=== PATIENT | female | born 1950 | race Caucasian/White ===

== ENCOUNTER → 2017-01-03 | Outpatient (CLI) | payer MEDICARE, BC ==
[~2017-01-03] MED LIST: AMITRIPTYLINE H25 M1 PO; DOXYCYCLINE 10100 MG PO; ELAVIL50 MG PO; ELMIRON100 MG PO; ENABLEX15 MG PO; LORTAB 5/500 501 TAB PO; NORCO 325 MG-51 TAB PO; OMNICEF 300MG300 MG PO; PRAVACHOL 40MG40 MG PO; PRAVASTATIN40 MG PO; PREDNISONE20 MG PO; PRELIEF333 M1 PO; PROBIOTIC-MAJOR PO; STOOL SOFTENER100 MG PO; SYNTHROID0.075 MG/T PO; THE MEDICINE S200 M2 PO; TUMS ULTRA1000 MG PO; [UNRECOGNIZED DRUG - OTHER] PO
== END ==
LOC: MC.RAD 13:00
DX: Z12.31 Encounter for screening mammogram for malignant neoplasm of breast (principal)

== ENCOUNTER 2018-03-27 18:00 | Inpatient (IN) | payer MEDICARE, BC ==
[~2018-03-27] VITALS: Ht 165.1 cm; Wt 87.7 kg
[2018-04-03 09:47] LABS: BASO # 0.1 (0.0-0.2); EOS # 0.2 (0.0-0.7); EOS % 3.3 % (0-4.0); GRAN # 4.3 (1.4-6.5); GRAN % 59.8 % (42.2-75.2); HEMATOCRIT 40.9 % (37.0-47.0); LYMPH # 2.1 (1.2-3.4); LYMPH % 28.6 % (20.0-51.0); MEAN CELL VOLUME 88 fl (80.0-100.0); MEAN CORPUSCULAR HEMOGLOBIN 30 pg (27.0-31.0); MEAN CORPUSCULAR HGB CONC 34 g/dl (33.0-37.0); MEAN PLATELET VOLUME 9.8 fl (7.4-10.4); MONO # 0.5 (0.1-0.6); MONO % 7.2 % (1.7-9.3); PLATELET COUNT 280 K/mm3 (130-400); RED BLOOD COUNT 4.66 M/mm3 (4.10-5.30); REDCELL DISTRIBUTION WIDTH-CV 13.1 % (11.5-14.5)
[2018-04-03 09:53] LABS: INR 1.1 (0.8-3.0); PROTHROMBIN TIME 12.2 SECONDS (9.7-12.8)
[2018-04-03] MEDS ORDERED: TOPROL XL 25MG25 MG PO (09:58)
[2018-04-03] MEDS ORDERED: GLUCOSAMINE & C1 CA2 PO (10:00)
[2018-04-03] MEDS ORDERED: ELIQUIS 5MG PO (10:01)
[2018-04-03] MEDS ORDERED: NATURAL ODORLE400 MG PO (10:03)
[2018-04-03] MEDS ORDERED: NATURAL E400 IU PO (10:05)
[2018-04-03 10:06] LABS: ALBUMIN 4.2 gm/dL (3.5-5.0); BILIRUBIN,TOTAL 1.2 mg/dL (0.0-1.0); CALCIUM 9.2 mg/dL (8.4-10.2); CREATININE, serum 0.78 mg/dL (0.52-1.25); MAGNESIUM 1.7 mg/dL (1.6-2.3); TOTAL PROTEIN 7.1 gm/dL (6.4-8.2)
[2018-04-03] MEDS ORDERED: VISION VITAMINS1 TA1 PO (10:06)
[2018-04-03 10:14] VITALS: BP 124/86; PULSE 71; TEMP 97.8
[2018-04-03 16:58] VITALS: BP 118/71; PULSE 61; TEMP 98.1
[2018-04-03 21:16] VITALS: BP 102/64; PULSE 66; TEMP 98.2
[2018-04-04 02:00] VITALS: BP 104/61; PULSE 62; TEMP 97.7
[2018-04-04 07:11] LABS: BASO # 0.1 (0.0-0.2); BASO % 0.9 % (0.0-2.0); EOS # 0.3 (0.0-0.7); EOS % 3.1 % (0-4.0); GRAN # 4.5 (1.4-6.5); GRAN % 56.2 % (42.2-75.2); HEMATOCRIT 42.5 % (37.0-47.0); HEMOGLOBIN 14.4 g/dl (12.5-16.0); LYMPH # 2.7 (1.2-3.4); LYMPH % 33.3 % (20.0-51.0); MEAN CELL VOLUME 88 fl (80.0-100.0); MEAN CORPUSCULAR HEMOGLOBIN 30 pg (27.0-31.0); MEAN CORPUSCULAR HGB CONC 34 g/dl (33.0-37.0); MEAN PLATELET VOLUME 10.4 fl (7.4-10.4); MONO # 0.5 (0.1-0.6); MONO % 6.2 % (1.7-9.3); PLATELET COUNT 291 K/mm3 (130-400); RED BLOOD COUNT 4.83 M/mm3 (4.10-5.30)
[2018-04-04 07:13] LABS: PROTHROMBIN TIME 11.3 SECONDS (9.7-12.8)
[2018-04-04 07:16] LABS: CALCIUM 9.1 mg/dL (8.4-10.2); CREATININE, serum 0.75 mg/dL (0.52-1.25); MAGNESIUM 1.8 mg/dL (1.6-2.3); POTASSIUM 4.2 mmol/L (3.4-5.0)
[2018-04-04 07:36] VITALS: BP 124/70; PULSE 64; TEMP 98.2
[2018-04-04 11:05] VITALS: BP 124/77; PULSE 60; TEMP 98.1
[2018-04-04 15:21] VITALS: BP 120/70; PULSE 70; TEMP 98.9
[2018-04-04 21:50] VITALS: BP 92/40; PULSE 65; TEMP 97.5
[2018-04-05] VITALS: BP 94/53; PULSE 59; TEMP 97.9
[2018-04-05 04:53] VITALS: BP 104/56; PULSE 59; TEMP 97.9
[2018-04-05 08:39] LABS: BASO # 0.1 (0.0-0.2); EOS # 0.3 (0.0-0.7); EOS % 3.4 % (0-4.0); GRAN # 4.3 (1.4-6.5); GRAN % 58.8 % (42.2-75.2); HEMATOCRIT 40.5 % (37.0-47.0); HEMOGLOBIN 13.8 g/dl (12.5-16.0); LYMPH # 2.2 (1.2-3.4); LYMPH % 29.9 % (20.0-51.0); MEAN CELL VOLUME 88 fl (80.0-100.0); MEAN CORPUSCULAR HEMOGLOBIN 30 pg (27.0-31.0); MEAN CORPUSCULAR HGB CONC 34 g/dl (33.0-37.0); MEAN PLATELET VOLUME 10.3 fl (7.4-10.4); MONO # 0.5 (0.1-0.6); MONO % 6.5 % (1.7-9.3); PLATELET COUNT 271 K/mm3 (130-400)
[2018-04-05 09:02] VITALS: BP 107/66; PULSE 63; TEMP 98.5
[2018-04-05 09:08] LABS: CALCIUM 8.9 mg/dL (8.4-10.2); CREATININE, serum 0.7 mg/dL (0.52-1.25); MAGNESIUM 1.7 mg/dL (1.6-2.3); POTASSIUM 3.9 mmol/L (3.4-5.0)
[2018-04-05] MEDS ORDERED: BETAPACE 80MG80 MG PO (09:24)
== END 2018-04-05 12:53 | disposition home or self-care (01) | DRG 310 ==
LOC: MEDICAL 04-03 08:47
PROVIDERS: Internal Medicine Cardiovascular Disease
DX: I48.0 Paroxysmal atrial fibrillation (principal); E78.5 Hyperlipidemia, unspecified; I10 Essential (primary) hypertension

== ENCOUNTER 2018-10-08 09:16 | Emergency (ER) | payer MEDICARE, BC ==
[~2018-10-08] VITALS: Ht 167.6 cm; Wt 90.9 kg
[~2018-10-08 09:16] MED LIST changes: +BETAPACE 80MG80 MG PO; +ELIQUIS 5MG PO; +GLUCOSAMINE & C1 CA2 PO; +NATURAL E400 IU PO; +NATURAL ODORLE400 MG PO; +TOPROL XL 25MG25 MG PO; +VISION VITAMINS1 TA1 PO
[2018-10-08 09:35] VITALS: TEMP 98.3
[2018-10-08] MEDS ORDERED: POLYMYXIN B/TRIMETH OD (09:47)
[2018-10-08] MEDS ORDERED: PREDFORTE5ML OU (09:47)
[2018-10-08 10:39] LABS: BASO # 0.1 (0.0-0.2); BASO % 0.8 % (0.0-2.0); EOS # 0.2 (0.0-0.7); EOS % 2.8 % (0-4.0); GRAN # 4.7 (1.4-6.5); HEMATOCRIT 44.7 % (37.0-47.0); LYMPH # 1.9 (1.2-3.4); LYMPH % 25.7 % (20.0-51.0); MEAN CELL VOLUME 88 fl (80.0-100.0); MEAN CORPUSCULAR HEMOGLOBIN 29 pg (27.0-31.0); MEAN CORPUSCULAR HGB CONC 34 g/dl (33.0-37.0); MEAN PLATELET VOLUME 9.9 fl (7.4-10.4); MONO # 0.5 (0.1-0.6); MONO % 6.4 % (1.7-9.3); PLATELET COUNT 312 K/mm3 (130-400); RED BLOOD COUNT 5.11 M/mm3 (4.10-5.30); REDCELL DISTRIBUTION WIDTH-CV 13.3 % (11.5-14.5)
[2018-10-08 10:45] LABS: INR 1.1 (0.8-3.0); PROTHROMBIN TIME 12.6 SECONDS (9.7-12.8)
[2018-10-08 10:51] LABS: ALANINE AMINOTRANSFERASE 8 U/L (9-52); ALBUMIN 4.3 gm/dL (3.5-5.0); ALKALINE PHOSPHATASE 89 U/L (50-136); AST,SGOT 25 U/L (15-37); BILIRUBIN,TOTAL 0.8 mg/dL (0.0-1.0); BLOOD UREA NITROGEN 14 mg/dL (7-17); CALCIUM 9.6 mg/dL (8.4-10.2); CARBON DIOXIDE 24 mmol/L (22-30); CREATININE, serum 0.66 (0.52-1.25); GLUCOSE 107 mg/dL (74-106); SODIUM 142 mmol/L (137-145); TOTAL PROTEIN 7.6 gm/dL (6.4-8.2)
[2018-10-08 10:53] LABS: CHLORIDE 107 mmol/L (98-107)
[2018-10-08 10:56] LABS: ANION GAP 11 mmol/L (7-16)
[2018-10-08 11:03] LABS: TROPONIN-I < 0.012 ng/mL (0.000-0.035)
[2018-10-08 13:40] VITALS: BP 121/89; PULSE 57
== END 2018-10-08 13:52 | disposition home or self-care (01) ==
LOC: COL.ER 09:16
PROVIDERS: Emergency Medicine
DX: I48.91 Unspecified atrial fibrillation (principal); Z79.01 Long term (current) use of anticoagulants; Z79.52 Long term (current) use of systemic steroids
CPT/HCPCS: J2405; J2704; J7030

== ENCOUNTER 2019-05-08 06:16 | Emergency (ER) | payer MEDICARE, BC ==
[~2019-05-08] VITALS: Ht 165.1 cm; Wt 88.6 kg
[~2019-05-08 06:16] MED LIST changes: +POLYMYXIN B/TRIMETH OD; +PREDFORTE5ML OU
[2019-05-08 07:09] LABS: BASO # 0.1 (0.0-0.2); BASO % 0.8 % (0.0-2.0); EOS # 0.2 (0.0-0.7); EOS % 2.2 % (0-4.0); GRAN # 5.3 (1.4-6.5); GRAN % 63.2 % (42.2-75.2); HEMATOCRIT 43.2 % (37.0-47.0); HEMOGLOBIN 14.7 g/dl (12.5-16.0); LYMPH # 2.3 (1.2-3.4); LYMPH % 27.9 % (20.0-51.0); MEAN CELL VOLUME 87 fl (80.0-100.0); MEAN CORPUSCULAR HEMOGLOBIN 30 pg (27.0-31.0); MEAN CORPUSCULAR HGB CONC 34 g/dl (33.0-37.0); MEAN PLATELET VOLUME 10.3 fl (7.4-10.4); MONO # 0.5 (0.1-0.6); MONO % 5.8 % (1.7-9.3); PLATELET COUNT 314 K/mm3 (130-400); RED BLOOD COUNT 4.98 M/mm3 (4.10-5.30)
[2019-05-08 07:15] LABS: ALANINE AMINOTRANSFERASE 14 U/L (9-52); ALBUMIN 4.6 gm/dL (3.5-5.0); ALKALINE PHOSPHATASE 81 U/L (50-136); ANION GAP 8 mmol/L (7-16); AST,SGOT 21 U/L (15-37); BILIRUBIN,TOTAL 0.7 mg/dL (0.0-1.0); BLOOD UREA NITROGEN 14 mg/dL (7-17); CALCIUM 9.7 mg/dL (8.4-10.2); CARBON DIOXIDE 26 mmol/L (22-30); CHLORIDE 106 mmol/L (98-107); CREATININE, serum 0.71 (0.52-1.25); GLUCOSE 110 mg/dL (74-106); INR 1.2 (0.8-3.0); POTASSIUM 3.8 mmol/L (3.4-5.0); PROTHROMBIN TIME 14.1 SECONDS (9.7-12.8); SODIUM 140 mmol/L (137-145); TOTAL PROTEIN 7.7 gm/dL (6.4-8.2)
[2019-05-08 07:28] LABS: TROPONIN-I < 0.012 ng/mL (0.000-0.035)
[2019-05-08] MEDS ORDERED: BETAPACE 80MG80 MG PO (08:38)
[2019-05-08 09:45] VITALS: BP 101/80; PULSE 57
== END 2019-05-08 10:05 | disposition home or self-care (01) ==
LOC: COL.ER 06:16
PROVIDERS: Emergency Medicine
DX: I48.91 Unspecified atrial fibrillation (principal); Z90.89 Acquired absence of other organs; Z98.890 Other specified postprocedural states
CPT/HCPCS: J2704; J7030

== ENCOUNTER → 2019-11-11 | Outpatient (CLI) | payer OTHER | LOC: COL.RAD 11:03 | DX: M23.341 Other meniscus derangements, anterior horn of lateral meniscus, right knee (principal); M23.321 Other meniscus derangements, posterior horn of medial meniscus, right knee; M25.562 Pain in left knee ==

== ENCOUNTER 2023-05-24 06:24 | Day surgery (SDC) | payer MEDICARE, BC ==
[~2023-05-24] VITALS: Ht 162.6 cm; Wt 79.8 kg
[~2023-05-24 06:24] MED LIST changes: +BETAPACE 120MG120 MG PO; +CALCIUM 600MG+D1 TAB PO; +CEFTIN500 MG PO; +LIPITOR 40MG TA40 MG PO; +LR 1,000 ML IV SCH; +Ondansetron 4 MG/2 ML VIAL IV PRN
[2023-05-24 06:56] VITALS: BP 143/86; PULSE 76; TEMP 98.2
[2023-05-24] MEDS ORDERED: Lidocaine PF 2% (20 MG/ML) 5 ML VIAL ONE (08:01)
[2023-05-24 08:40] VITALS: BP 118/77; PULSE 57; TEMP 96.8
[2023-05-24 08:45] VITALS: BP 120/80; PULSE 57
[2023-05-24 09:00] VITALS: BP 119/91; PULSE 55
[2023-05-24 09:15] VITALS: BP 130/89; PULSE 60
--- NOTE | 2023-05-24 09:26 | NUR ---
0840- PATIENT RETUR[place] [facility] [place]. PT AWAKE AND ALERT. RESPIRATIONS UNLABORED. AMBULATED TO RECLINER CHAIR WITH 2:1 SBA. PT DENIES NAUSEA OR ABDOMINAL PAIN. HOOKED UP TO MONITOR AND VS OBTAINED. CALL LIGHT AT SIDE AND PRESENT. 0847- PATIENT TOLERATING COFFEE AND MUFFIN WITHOUT NAUSEA OR ABD PAIN. 0857- D/C INSTRUCTIONS REVIEWED WITH PATIENT. PT VERBALIZED UNDERSTANDING AND A COPY OF INSTRUCTIONS PROVIDED IN D/C FOLDER. 0909- DR. BROTHERS IN ROOM SPEAKING WITH PATIENT. 0921- PATIENT DRESSES SELF. 0926- PATIENT DISCHARGED FROM UNIT VIA W/C TO A PERSONAL VEHICLE. PT LEFT HOSPITAL IN STABLE CONDITION.
== END 2023-05-24 09:26 | disposition home or self-care (01) ==
LOC: SDCO 06:24
DX: Z12.11 Encounter for screening for malignant neoplasm of colon (principal); D12.0 Benign neoplasm of cecum; K57.30 Diverticulosis of large intestine without perforation or abscess without bleeding
CPT/HCPCS: J2704; J7120